=== PATIENT | female | born 1995 | race Caucasian/White ===

== ENCOUNTER 2018-01-05 02:27 | Emergency (ER) | payer OTHER ==
[~2018-01-05 02:27] MED LIST: MOTRIN 800MG T800 MG PO
[2018-01-05 02:32] VITALS: BP 126/74
--- NOTE | 2018-01-05 03:06 | ED HEAD/FACIAL INJ COMPLAINT ---
History of Present Illness General Chief Complaint: Laceration Procedure Stated Complaint: LAC TO LEFT EYEBROW Source: patient, family Exam Limitations: no limitations Vital Signs & Intake/Output Vital Signs & Intake/Output Vital Signs Date Time Temp Pulse Resp B/P B/P Pulse O2 O2 Flow FiO2 Mean Ox Delivery Rate 01/05 0232 97.8 110 22 126/74 98 Allergies Coded Allergies: NO KNOWN ALLERGIES (09/03/15) Reconcile Medications Yibuprofen (Motrin 800MG Tab) 800 MG TAB 800 MG PO Q6P PRN PAIN SCALE 4-6 Triage Note: PER PT WOKE UP AND HIT HEAD RUNNING TO DAUGHTERS ROOM. PT SUSTAINED LAC TO L EYEBROW, HAS NOT HAD MENSES IN 2 YRS. UNSURE OF LAST TETANUS Triage Nurses Notes Reviewed? yes : No Patient currently breastfeeds: No HPI: Patient woke up because her daughter was crying. Patient was walking with dark towards her daughter's room and she walked into a door. Positive laceration to her left eyebrow. There was no loss of consciousness. Patient denies any headache. Patient is up-to-date on her tetanus shot. Patient denies any other injury. Past History Travel History Traveled to [place] past 21 day No Medical History Any Pertinent Medical History? none Neurological: NONE EENT: NONE Cardiovascular: NONE Respiratory: NONE Gastrointestinal: NONE Hepatic: NONE Renal: NONE Musculoskeletal: NONE Psychiatric: NONE Endocrine: NONE Surgical History Surgical History: non-contributory, N Psychosocial History What is your primary language Finnish Tobacco Use: Never used ETOH Use: occasional use Illicit Drug Use: denies illicit drug use Family History Hx Contributory? No Review of Systems Review of Systems Constitutional: Reports: no symptoms. EENTM: Reports: see HPI. Respiratory: Reports: no symptoms. Cardiovascular: Reports: no symptoms. Musculoskeletal: Reports: no symptoms. Neurological/Psychological: Reports: no symptoms. Immunologic/Allergic: Reports: no symptoms. Physical Exam Physical Exam General Appearance: well developed/nourished, alert, awake, mild distress Head: lacerations Eyes: Bilateral: PERRL, EOMI. Neck: normal inspection, supple, no midline tenderness Respiratory: normal breath sounds, chest non-tender, no respiratory distress, lungs clear Cardiovascular: regular rate/rhythm, normal peripheral pulses Cranial Nerves: normal hearing, normal speech, PERRL Coordination/Gait: normal gait Diagram Head: 1) LACERATION Progress Differential Diagnosis: LACERATION Plan of Care: SUTURE Departure Departure Disposition: HOME OR SELF CARE Condition: Stable Clinical Impression Primary Impression: Laceration Referrals: Giulia BELLAMY,Latisha Winkler (PCP/Family) Additional Instructions: RETURN IN 5 DAYS FOR SUTURE REMOVAL RETURN SOONER IF AREA TURNS RED, HOT TO THE TOUCH, PUS DRAIANGE OR FOR ANY CONCERNS Departure Forms: Customer Survey General Discharge Information Procedures Laceration/Wound Repair Laceration/Wound Repair: Wound Location: face Wound's Depth, Shape: linear, superficial Wound Length (cm): 2 Wound Explored: clean Irrigated w/ Saline (ccs): 50 Betadine Prep? Yes Anesthesia: 1% lidocaine Volume Anesthetic (ccs): 3 Wound Repaired With: sutures Suture Size/Type: 6:0 Number of Sutures: 6 Layer Closure? No Tetanus Status: up to date
== END 2018-01-05 03:12 ==
LOC: ERH 02:27
DX: S01.112A Laceration without foreign body of left eyelid and periocular area, initial encounter (principal); W22.01XA Walked into wall, initial encounter; Y92.9 Unspecified place or not applicable; Y93.9 Activity, unspecified

== ENCOUNTER 2018-01-11 12:31 | Emergency (ER) | payer OTHER ==
[~2018-01-11] VITALS: Ht 162.6 cm; Wt 45.4 kg
--- NOTE | 2018-01-11 12:45 | ED ANIMAL BITE/WOUND CHECK ---
History of Present Illness General Chief Complaint: Suture Removal/Wound Recheck Stated Complaint: SUTURE REMOVAL Source: patient, old records Exam Limitations: no limitations Vital Signs & Intake/Output Vital Signs & Intake/Output Vital Signs Date Time Temp Pulse Resp B/P B/P Pulse O2 O2 Flow FiO2 Mean Ox Delivery Rate 01/11 1241 97.9 99 18 88/48 96 Room Air Allergies Coded Allergies: NO KNOWN ALLERGIES (09/03/15) Reconcile Medications No Known Home Medications Triage Note: 23F HERE FOR SUTURE REMOVAL TO LEFT EYEBROW, PLACED ON FRIDAY NIGHT. APPEARS WELL HEALING, NO SURROUNDING ERYTHEMA OR DRAINAGE. -FEVERS. DENIES SIGNIFICANT PAIN. HYPONTENSIVE, DENIES DIZZINESS OR LIGHTHEADEDNESS Triage Nurses Notes Reviewed? yes Onset: Abrupt Duration: better Timing: recent history Injury Environment: home : No Patient currently breastfeeds: No HPI: Patient is a 23-year-old female who presents emergency room with concerns of wound recheck and possible suture removal request and which old records indicate the patient was evaluating on January 05 and suffered a laceration to her left eyebrow where patient had #6 sutures placed. Patient denies any sinus infection denies any pain and denies any symptoms currently. She does note ecchymosis around her left eye orbit Past History Travel History Traveled to [place] past 21 day No Medical History Any Pertinent Medical History? none Neurological: NONE EENT: NONE Cardiovascular: NONE Respiratory: NONE Gastrointestinal: NONE Hepatic: NONE Renal: NONE Musculoskeletal: NONE Psychiatric: NONE Endocrine: NONE Surgical History Surgical History: non-contributory, N Psychosocial History What is your primary language Sami Tobacco Use: Never used Family History Hx Contributory? No Review of Systems Review of Systems Constitutional: Reports: no symptoms. EENTM: Reports: see HPI. Respiratory: Reports: no symptoms. Cardiovascular: Reports: no symptoms. GI: Reports: no symptoms. Genitourinary: Reports: no symptoms. Musculoskeletal: Reports: no symptoms. Skin: Reports: see HPI. Neurological/Psychological: Reports: see HPI. Denies: headache, numbness. Hematologic/Endocrine: Reports: no symptoms. Immunologic/Allergic: Reports: no symptoms. All Other Systems: Reviewed and Negative Physical Exam Physical Exam General Appearance: no apparent distress, alert, comfortable Eyes: Bilateral: normal appearance, PERRL, EOMI. Ears, Nose, Throat: normal pharynx, normal ENT inspection Neck: normal inspection Respiratory: normal breath sounds, chest non-tender Extremities: normal range of motion Neurologic/Psych: no motor/sensory deficits, awake, alert, oriented x 3, normal gait Skin: intact Diagram Head: 1) Noted left superior ecchymosis with no step-off deformity 2) 2 cm well-healing laceration with #6 intact sutures no signs of infection Progress Differential Diagnosis: abscess, cellulitis, joint infection, tenosysnovitis Plan of Care: #6 sutures were removed without complications patient tolerated well bacitracin was applied No concerns of infection at this time Departure Departure Disposition: HOME OR SELF CARE Condition: Stable Clinical Impression Primary Impression: Visit for suture removal Secondary Impressions: Visit for wound check Referrals: Giulia BELLAMY,Latisha Winkler (PCP/Family) Additional Instructions: As discussed apply bacitracin to area 1 more DAY tomorrow, and then leave area open to improve healing. If you note signs of infection or symptoms worsen, return to emergency room, an approximate one-week begin [id number] MEDERMA FOR scar healing Departure Forms: Customer Survey General Discharge Information Prescriptions: Current Visit Scripts No Known Home Medications
[2018-01-11 13:04] VITALS: BP 94/60
== END 2018-01-11 13:04 ==
LOC: ERH 12:31
DX: Z48.02 Encounter for removal of sutures (principal)